=== PATIENT | male | born 1960 | race Caucasian/White ===

== ENCOUNTER 2025-07-27 12:09 | Emergency (ER) | payer MEDICARE, OTHER, SELFPAY ==
[2025-07-27 12:19] VITALS: BP 141/70
--- NOTE | 2025-07-27 14:06 | ED.GENMED ---
History of Present Illness
General
Chief Complaint: Fall
Source: patient
Exam Limitations: none
Time Seen by Provider: 07/27/25 14:01
History of Present Illness
History of Present Illness:
64yo right hand dominant male with a history of hypertension presenting for evaluation of left hand pain. Patient was in the [facility] yesterday camping. He stood up out of a camping chair and lost his balance and fell on his left outstretched hand.
His left ring finger swelled today and he was unable to get his ring off. No paresthesias.
Past History
Past History
ED Past Medical History: HTN and Other (Prostate cancer, pulmonary embolism, when he had his gallbladder surgery)
ED Past Surgical History: Cholecystectomy, Orthopedic (Left knee replacement) and Urological
Social History
Tobacco: Non-smoker
Alcohol: Occasional
Drug: None
Personal:
Living: with family
Phy Exam
General Physical Exam
General Presentation: well appearing and no apparent distress
General Skin: warm and dry
General Habitus: normal
General Mental: alert
ENT Exam
ENT Exam: normocephalic
Pulmonary Exam
Pulmonary Exam: no respiratory distress
Neurological Exam
Neurological Exam: alert
Comfort Coma Scale
Eye Opening: Spontaneous
Verbal Response: Oriented
Motor Response: Obeys Commands
GCS Total Score: 15
Musculoskeletal Exam
Musculoskeletal Exam: other (Soft tissue swelling noted to proximal L ring and middle fingers. Ring removed in triage. Skin intact. ROM normal. Cap refill and sensation intact. 2+ radial pulse.)
Skin Exam
Skin Exam: normal color and warm/dry
Psychiatric Exam
Psychiatric Exam: normal mood/affect
Course
Orders/Labs/Results
Orders:
Orders
07/27/25 12:22
Hand, Left 3 View [CR Hand - Left Min 3 Views] Urgent
Comment: ring and middle finger pain
Reason For Exam: left hand pain fell yesterday
Vital Signs
Initial and Last Documented VS:
Initial Vital Signs
Temp Pulse Resp BP Pulse Ox
98.0 F 81 16 141/70 98
07/27/25 12:19 07/27/25 12:19 07/27/25 12:19 07/27/25 12:19 07/27/25 12:19
Last Documented Vital Signs
Temp Pulse Resp BP Pulse Ox
98.0 F 81 16 141/70 98
07/27/25 12:19 07/27/25 12:19 07/27/25 12:19 07/27/25 12:19 07/27/25 14:07
MDM/Problems Addressed
Differential Diagnosis Includes:
64yoM here with L hand pain/swelling after an injury yesterday. He was unable to remove his wedding ring at home. This was removed by nursing staff in triage. Soft tissue swelling of the proximal 3rd and 4th digits noted on exam. X-rays obtained
which are negative for fracture. Supportive care discussed including elevation and ice. Patient discharged in stable condition.
*Pulse Oximetry
SaO2: 98
Oxygen Mode of Delivery: Room air
Patient hypoxic: no
*Critical Care Note
Total Time (30-74mins, 75-104mins- exclusive of procedures): Not Applicable
ED Attending Note
-
Portions of this chart may have been created with voice recognition software.� Occasional wrong word or��sound alike� substitutions may have occurred due to the inherent limitations of voice recognition software.
Discharge Plan
Departure
Patient Disposition: Home (Routine Discharge)
Date of Disposition: 07/27/25
Time of Disposition: 14:08
Patient with high blood pressure during this ER visit?: Yes
Discharge Problem:
Injury of left hand, Ring or other jewelry causing external constriction, initial encounter
Instructions: Hand pain
Prescriptions:
No Action
epinephrine [EpiPen] 0.3 MG/0.3/SYRINGE auto-injector
0.3 mg IM ONCE PRN (Reason: severe sob, throat tightness) Qty: 2 0RF
losartan 25 MG tablet
25 mg PO DAILY
omeprazole 20 MG capsule,delayed release(DR/EC)
20 mg PO DAILY
tadalafil [Cialis] 5 MG tablet
5 mg PO PRN PRN (Reason: ED)
hydrochlorothiazide 12.5 MG tablet
12.5 mg PO DAILY
Activity Restrictions/Additional Instructions:
Your x-rays do not show any fractures.
Apply ice and elevate to help with swelling. Take Tylenol as needed for pain.
Interventions
Interventions:
*Risk Screen - Suicide Last Done: 07/27/25 12:19
*Neglect/Abuse Screening Last Done: 07/27/25 12:19
*Nursing Disposition Last Done: 07/27/25 15:05
ED- Neurological Assessment Last Done: 07/27/25 14:04
Discharge Date and Time
Discharge Date/Time: 07/27/25 15:05
Print Language: KOREAN
== END 2025-07-27 15:05 | disposition home or self-care (01) ==
LOC: EMR 12:09
PROVIDERS: EMERGENCY PHYSICIAN Emergency Medicine; FAMILY PHYSICIAN Family Medicine
DX: S69.92XA Unspecified injury of left wrist, hand and finger(s), initial encounter (principal); W49.04XA Ring or other jewelry causing external constriction, initial encounter; I10 Essential (primary) hypertension; Z86.711 Personal history of pulmonary embolism; Z90.49 Acquired absence of other specified parts of digestive tract; Z96.652 Presence of left artificial knee joint
CPT/HCPCS: 99283; 73130